=== PATIENT | male | born 1995 | race Caucasian/White ===

== ENCOUNTER 2022-12-08 21:02 | Emergency (ER) | payer SELFPAY ==
[~2022-12-08] VITALS: Ht 175.3 cm; Wt 88.5 kg
[2022-12-08 21:57] LABS: CLARITY,URINE CLEAR (CLEAR); COLOR,URINE YELLOW (YELLOW); KETONES,URINE NEGATIVE (NEGATIVE); LEUKOCYTE ESTERASE ,URINE NEGATIVE (NEGATIVE); NITRITE,URINE NEGATIVE (NEGATIVE); PROTEIN,URINE DIPSTICK NEGATIVE (NEGATIVE); URINE UROBILINOGEN 0.2 mg/dL (0.2 - 1)
[2022-12-08 22:03] LABS: AMORPHOUS SEDIMENT,URINE FEW (FEW); BACTERIA,URINE RARE /HPF; EPITHELIAL CELLS,URINE RARE /LPF; WBC,URINE (MAN) 0-5 /HPF (0-5)
[2022-12-08] MEDS ORDERED: IBUPROFEN 600 MG TAB PO STA (22:55)
[2022-12-08] MEDS ORDERED: IBUPROFEN 600 MG TAB ONE (22:57)
[2022-12-08] MEDS ORDERED: IBUPROFEN600 MG PO (23:02)
[2022-12-08 23:23] VITALS: BP 130/89; PULSE 64; RESP 19; TEMP 98.4; O2SAT 99
== END 2022-12-08 23:24 | disposition home or self-care (01) ==
LOC: ER 21:12
DX: R50.9 Fever, unspecified (principal); K80.20 Calculus of gallbladder without cholecystitis without obstruction; M54.50 Low back pain, unspecified; R35.0 Frequency of micturition
CPT/HCPCS: 72131; 74176; 81001; 99283